=== PATIENT | female | born 1945 | race Caucasian/White ===

== ENCOUNTER 2018-03-29 08:32 | Inpatient (IN) ==
--- NOTE | 2018-03-29 09:09 | Emergency Department Note ---
Disposition Clinical Impression: Lower GI bleed Disposition: Admitted As Inpatient Condition: Fair Referrals: Veronica Sprague, CREDIT NEGOTIATOR [Primary Care Provider] - Forms: ED Satisfaction Letter, Work/School Release Time of Disposition: 10:29 GI Bleed HPI - General Chief complaint: ED Abdominal Pain Stated complaint: blood in bm Time Seen by Provider: 03/29/18 08:55 Source: patient, family Mode of arrival: private vehicle Limitations: no limitations Nursing Notes Reviewed: Yes Vital Signs Reviewed: Yes - History of Present Illness Pt Subjective Complaint: gross bloody stools Onset (ago): hour(s) Number of episodes: 2 (Last episode about 6:30 this morning) Consistency: intermittent Severity: moderate Worsens with: bowel movement Associated symptoms: Reports: abdominal pain (Patient had some abdominal cramping last night. This morning she had a sense that she had to have a bowel movement but no actual abdominal pain this morning. She denies abdominal pain at this time.) Treatments Prior to Arrival: none - Related Data Home Medications Medication Instructions Recorded Confirmed Aspirin [Adult Aspirin Regimen] 81 mg PO HS 03/29/18 03/29/18 Simvastatin [Zocor] 10 mg PO HS 03/29/18 03/29/18 Allergies Allergy/AdvReac Type Severity Reaction Status Date / Time fluconazole [From Diflucan] Allergy Hives Verified 03/29/18 08:39 Penicillins Allergy Hives Verified 03/29/18 08:39 Sulfa (Sulfonamide Allergy Hives Verified 03/29/18 08:39 Antibiotics) All systems ED: reviewed and negative except as stated. Constitutional: Denies: fever, chills Cardiovascular: Denies: chest pain, palpitations Respiratory: Denies: cough, dyspnea Gastrointestinal: Denies: nausea, vomiting Integumentary: Denies: rash Neurological: Denies: weakness Hematological/Lymphatic: Denies: easy bruising Past Medical History - Past Medical History Attestation: Yes The following information was validated with the patient. 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 Absent: scleral icterus, conjunctival injection - ENT ENT exam: normal exam, normal oropharynx, mucous membranes moist, normal external ear exam - Neck Neck exam: Present: normal inspection, full ROM, trachea midline - Chest Chest inspection: Present: normal inspection, symmetric chest wall rise. Absent: tenderness - Respiratory Respiratory exam: Present: normal lung sounds bilaterally. Absent: respiratory distress, wheezes - Cardiovascular Cardiovascular exam: Present: regular rate, normal rhythm, normal heart sounds - Abdominal Exam Abdominal exam: Present: soft, Non-Tender, normal bowel sounds. Absent: mass - Rectal Exam Waste Management Engineer present during exam: Yes (Nurse) Rectal exam: Present: bloody stool - Extremities Exam Extremities exam: Present: normal inspection. Absent: pedal edema - Back Exam Back exam: Present: normal inspection - Neurological Exam Neurological exam: Present: alert, oriented X3 - Psychiatric Psychiatric exam: Present: normal affect, normal mood - Skin Skin exam: Present: warm, dry. Absent: rash Course Course Narrative: Patient presents with 2 episodes of lower GI bleeding that started this morning. Physical examination shows melanotic stool. There is no rectal pain on rectal exam. There is no abdominal tenderness or masses. This most likely is going to represent diverticular bleeding. However it just started this morning so we do not, slow down or if she did not require transfusion. Vital signs are good and she is in no distress and she has no symptoms of significant anemia or significant blood loss. We will check the labs. Disposition will be based on diagnostic results and reevaluation. - Reevaluation(s) Reevaluation #1: Labs came back showing the hemoglobin to be fine. Oddly enough, her stool guaiac came back as negative. She clearly had melanotic stool on rectal examination and I feel that that stool guaiac is lab error. I think the patient is to be admitted to the hospital for serial hemoglobins and stool guaiac. She is hemodynamically stable and asymptomatic except for the blood in the stool. Thus I feel she can be admitted here. I spoke with the hospitalist, Dr. Kelly, about the presentation and results. He has accepted the patient for admission to the hospital. Time: 10:29 - Consultations Consultation #1: Dr. Kelly, hospitalist - I discussed the case with os was. He has accepted the patient for admission. Time: 10:25 Vital Signs Temperature 97.8 F 03/29/18 08:33 Pulse Rate 92 03/29/18 08:33 Respiratory Rate 16 03/29/18 08:33 Blood Pressure 116/79 03/29/18 08:33 O2 Sat by Pulse Oximetry 95 03/29/18 08:33 Temperature 97.8 F 03/29/18 08:33 Pulse Rate 83 03/29/18 10:28 Respiratory Rate 16 03/29/18 10:28 Blood Pressure 118/68 03/29/18 10:28 O2 Sat by Pulse Oximetry 95 03/29/18 10:28 Oxygen Delivery Oxygen Delivery Room Air GI Bleed - Medical Records Medical records reviewed: Yes I reviewed the patient's medical records. - Lab Data Lab results reviewed: Yes I reviewed the patient's lab results. Result diagrams: 03/29/18 09:27 03/29/18 09:27 Lab Results 03/29/18 03/29/18 03/29/18 Range/Units 09:06 09:27 09:27 WBC 5.4 (4.3-11.1) K/mcL RBC 4.22 (3.82-4.97) M/mcL Hgb 12.2 (11.5-15.4) g/dL Hct 36.7 (35.3-44.9) % MCV 87.0 (83.0-100.0) fL MCH 28.9 (28.0-33.3) pg MCHC 33.2 (31.6-35.5) g/dL RDW 13.4 (11.5-14.5) % Plt Count 199 (140-400) K/mcL MPV 11.0 (9.4-12.4) fL Immature Gran % 0.4 (0-4) % Seg Neutrophils % 74.4 % Lymphocytes % 15.9 % Monocytes % 7.5 % Eosinophils % 0.9 % Basophils % 0.9 % Neutrophils # 4.0 (1.6-8.9) K/mcL Lymphocytes # 0.9 (0.6-4.6) K/mcL Monocytes # 0.4 (0.0-1.3) K/mcL Eosinophils # 0.1 (0.0-0.6) K/mcL Basophils # 0.1 (0.0-0.2) K/mcL Sodium 134 L (136-145) mEq/L Potassium 5.2 H (3.5-5.1) mEq/L Chloride 102 (98-107) mEq/L Carbon Dioxide 28 (23-29) mEq/L BUN 13 (8-23) mg/dL Creatinine 0.77 (0.60-1.20) mg/dL Est GFR ( Amer) > 60 (> 60) Est GFR (Non-Af Amer) > 60 (> 60) BUN/Creatinine Ratio 17 (6-26) Glucose 126 H (70-105) mg/dL Calculated Osmolality 280 (280-300) Calcium 9.4 (8.6-10.3) mg/dL Stool Occult Blood Negative (Negative) Blood Type Antibody Screen 03/29/18 Range/Units 09:27 WBC (4.3-11.1) K/mcL RBC (3.82-4.97) M/mcL Hgb (11.5-15.4) g/dL Hct (35.3-44.9) % MCV (83.0-100.0) fL MCH (28.0-33.3) pg MCHC (31.6-35.5) g/dL RDW (11.5-14.5) % Plt Count (140-400) K/mcL MPV (9.4-12.4) fL Immature Gran % (0-4) % Seg Neutrophils % % Lymphocytes % % Monocytes % % Eosinophils % % Basophils % % Neutrophils # (1.6-8.9) K/mcL Lymphocytes # (0.6-4.6) K/mcL Monocytes # (0.0-1.3) K/mcL Eosinophils # (0.0-0.6) K/mcL Basophils # (0.0-0.2) K/mcL Sodium (136-145) mEq/L Potassium (3.5-5.1) mEq/L Chloride (98-107) mEq/L Carbon Dioxide (23-29) mEq/L BUN (8-23) mg/dL Creatinine (0.60-1.20) mg/dL Est GFR ( Amer) (> 60) Est GFR (Non-Af Amer) (> 60) BUN/Creatinine Ratio (6-26) Glucose (70-105) mg/dL Calculated Osmolality (280-300) Calcium (8.6-10.3) mg/dL Stool Occult Blood (Negative) Blood Type A POSITIVE Antibody Screen NEGATIVE
[2018-03-29 09:35] LABS: Basophils # 0.1 K/mcL (0.0-0.2); Basophils % 0.9 %; Eosinophils # 0.1 K/mcL (0.0-0.6); Eosinophils % 0.9 %; Hematocrit 36.7 % (35.3-44.9); Hemoglobin 12.2 g/dL (11.5-15.4); Immature Granulocytes % 0.4 % (0-4); Lymphocytes # 0.9 K/mcL (0.6-4.6); Lymphocytes % 15.9 %; Mean Corpuscular HGB Conc 33.2 g/dL (31.6-35.5); Mean Corpuscular Hemoglobin 28.9 pg (28.0-33.3); Monocytes # 0.4 K/mcL (0.0-1.3); Monocytes % 7.5 %; Platelet Count 199 K/mcL (140-400); Red Blood Count 4.22 M/mcL (3.82-4.97); Red Cell Distribution Width 13.4 % (11.5-14.5); Segmented Neutrophils % 74.4 %
[2018-03-29 09:45] LABS: Prothrombin Time 10.8 Seconds (9.4-12.1)
[2018-03-29 09:48] LABS: Activated Partial Thrombo Time 29.5 Seconds (26.0-36.0)
[2018-03-29 10:04] LABS: BUN/Creatinine Ratio 17 (6-26); Blood Urea Nitrogen 13 mg/dL (8-23); Calcium 9.4 mg/dL (8.6-10.3); Carbon Dioxide 28 mEq/L (23-29); Chloride 102 mEq/L (98-107); Glucose 126 mg/dL (70-105); Potassium 5.2 mEq/L (3.5-5.1); eGFR For Non-African Americans > 60 (> 60)
[2018-03-29 10:24] LABS: Osmolality,Calculated 280 (280-300); Sodium 134 mEq/L (136-145)
[2018-03-29] MEDS ORDERED: Naloxone 0.4 MG/ML INJ IVP PRN (11:07)
[2018-03-29] MEDS: 0.9 % Sodium Chloride 1,000 ML IVC SCH ×2 (12:15→21:53)
--- NOTE | 2018-03-29 14:46 | Internal Med History&Physical ---
Date of Encounter: 03/29/18 Time of Encounter: 14:15 Assessment and Plan (1) GI bleed Current visit: Yes Status: Acute I explained she may have 2 separate sources of bleeding since she had both hematochezia and melena. There is no obvious etiology apparent at this time. Aspirin will be held. Continue IV fluids and recheck labs in a.m. Qualifiers: GI bleed type/associated pathology: unspecified gastrointestinal hemorrhage type Qualified Code(s): K92.2 - Gastrointestinal hemorrhage, unspecified (2) Hyperkalemia Current visit: Yes Status: Acute Recheck labs in a.m. Internal Medicine - H&P: HPI Chief complaint: GI bleed Admitted From: Emergency Dept Plans for Post Hospital Care: Home History of present illness: Ms. Kim is a 72 year old female who came to emergency room stating approximately 0500 day of admission she had a loose BM with dark blood. She returned to bed but had another loose BM approximately one hour later that looked dark. She also noticed a scant amount of bright red blood. She came to emergency room and was evaluated and admitted to [facility] floor for ongoing care needs. She denies significant pain at present time. She denies previous melena or hematochezia. She has had no significant constipation with straining in the past few days. She reports colonoscopy 2006 was unremarkable. She has been on aspirin 81 mg daily for several years. She denies use of NSAIDs otherwise. She denies disorders of her liver or exocrine pancreas. She had cholecystectomy 2006. Past Med Surg Social Fam HX - Past Medical History Medical history: arthritis, hyperlipidemia, other Additional medical history: UTI Psychiatric history: no psych history - Past Surgical History Surgical History: cholecystectomy Additional surgical history: Tubal - Social History Smoking Status: Never smoker Smokeless Tobacco Status: No Alcohol use: none Drug use: none Internal Medicine - H&P: Meds Aspirin [Adult Aspirin Regimen] 81 mg PO HS 03/29/18 [History] Simvastatin [Zocor] 10 mg PO HS 03/29/18 [History] Allergy/AdvReac Type Severity Reaction Status Date / Time fluconazole [From Diflucan] Allergy Hives Verified 03/29/18 08:39 Penicillins Allergy Hives Verified 03/29/18 08:39 Sulfa (Sulfonamide Allergy Hives Verified 03/29/18 08:39 Antibiotics) All Systems PM: A 10-system review of systems was performed and is negative for pertinent findings except as documented above in the HPI. Review of systems: Gen.: She states her weight has been stable for several years Cardiovascular: She denies hypertension [place] heart failure angina DVT or pulmonary embolus Respiratory: She is a lifelong nonsmoker and denies chronic lung disease GI: As per history of present illness : She had kidney stones approximately 40 years ago. She denies other kidney or bladder disorders. She has had occasional UTIs. Neurologic: She denies large distortion strokes or seizures. Endocrine: She has hyperlipidemia but denies diabetes or thyroid disease Hematology/oncology: She denies blood disorders cancers or anemia Psychiatric: She has occasional feelings of depression but does not take medication. She denies other mental health diagnosis. [place] skeletal: She has DJD but denies gout or other bone joint or muscle disorders. - Constitutional Vitals: Temp Pulse Resp BP Pulse Ox 97.8 F 79 16 116/70 97 03/29/18 11:27 03/29/18 11:27 03/29/18 11:27 03/29/18 11:27 03/29/18 11:27 Exam: Gen.: She is a well-developed well-nourished female who appears in no acute distress at present time HEENT: Head is atraumatic and normal cephalic. Eyes: EOMI. There is no scleral icterus. Mouth: Mucosa is moist. Neck: Supple and nontender. There is no thyromegaly or adenopathy noted. Heart: Regular without murmurs gallops or ectopics Lungs: No wheezes or crackles are heard. Abdomen: Soft and nontender. No masses or guarding are noted. Extremities: She is wearing OLIVIA hose which I did not remove. There is no edema palpated. She has minimal DJD changes or hands. Neurologic: Mental status: She is talkative and a good historian. Cranial nerves: Smile is symmetric. Forehead wrinkles bilaterally. Tongue protrudes midline. EOMI. Motor: There is no pronator drift. Cerebellar: Finger to nose is intact bilaterally. Skin: Warm and dry Internal Med - H&P Results - Labs CBC & Chem 7: 03/29/18 09:27 03/29/18 09:27 Labs: Short CBC 03/29/18 Range/Units 09:27 WBC 5.4 (4.3-11.1) K/mcL Hgb 12.2 (11.5-15.4) g/dL Hct 36.7 (35.3-44.9) % Plt Count 199 (140-400) K/mcL Neutrophils # 4.0 (1.6-8.9) K/mcL [facility] 03/29/18 09:27 Sodium 134 L Potassium 5.2 H Chloride 102 Carbon Dioxide 28 BUN 13 Creatinine 0.77 Glucose 126 H Calcium 9.4 - VTE Documentation of Mechanical Device: Graduated compression elastic hosiery
[2018-03-30 05:26] LABS: Basophils # 0.1 K/mcL (0.0-0.2); Basophils % 1.1 %; Eosinophils # 0.1 K/mcL (0.0-0.6); Eosinophils % 1.8 %; Hematocrit 26.6 % (35.3-44.9); Hemoglobin 8.8 g/dL (11.5-15.4); Immature Granulocytes % 0.4 % (0-4); Lymphocytes # 1.5 K/mcL (0.6-4.6); Lymphocytes % 32.3 %; Mean Corpuscular HGB Conc 33.1 g/dL (31.6-35.5); Mean Corpuscular Hemoglobin 29.1 pg (28.0-33.3); Mean Corpuscular Volume 88.1 fL (83.0-100.0); Mean Platelet Volume 11.5 fL (9.4-12.4); Monocytes # 0.5 K/mcL (0.0-1.3); Monocytes % 11.5 %; Neutrophils # 2.4 K/mcL (1.6-8.9); Platelet Count 157 K/mcL (140-400); Red Blood Count 3.02 M/mcL (3.82-4.97); Red Cell Distribution Width 13.7 % (11.5-14.5); Segmented Neutrophils % 52.9 %
[2018-03-30 07:14] LABS: Sodium 133 mEq/L (136-145)
[2018-03-30 07:16] LABS: Alanine Aminotransferase 11 Units/L (7-52); Albumin 2.9 g/dL (3.5-5.7); Albumin/Globulin Ratio 1.5 (1.1-2.2); Alkaline Phosphatase 40 Units/L (34-104); Aspartate Amino Transferase 15 Units/L (13-39); BUN/Creatinine Ratio 19 (6-26); Bilirubin,Total 0.6 mg/dL (0.3-1.0); Blood Urea Nitrogen 13 mg/dL (8-23); Calcium 7.9 mg/dL (8.6-10.3); Carbon Dioxide 25 mEq/L (23-29); Chloride 106 mEq/L (98-107); Glucose 106 mg/dL (70-105); Osmolality,Calculated 277 (280-300); Potassium 3.7 mEq/L (3.5-5.1); Total Protein 4.9 g/dL (6.4-8.9); eGFR For Non-African Americans > 60 (> 60)
--- NOTE | 2018-03-30 08:43 | Internal Med Progress Note ---
Date of Encounter: 03/30/18 Time of Encounter: 08:35 - Assessment and plan (1) GI bleed Current Visit: Yes Status: Acute Assessment and plan: March 30. Remain off aspirin and discontinue IV fluids. Continue clear liquid diet and recheck labs in a.m. Qualifiers: GI bleed type/associated pathology: unspecified gastrointestinal hemorrhage type Qualified Code(s): K92.2 - Gastrointestinal hemorrhage, unspecified (2) Hyperkalemia Current Visit: Yes Status: Resolved Assessment and plan: March 30. Potassium now normal at 3.7. Recheck labs in a.m. - Subjective Interval history: March 30. She has no new complaints. She states her diarrhea has resolved. She feels very minimal abdominal discomfort overall. - Constitutional Vitals: Temp Pulse Resp BP Pulse Ox 99.1 F 75 16 95/56 96 03/30/18 07:49 03/30/18 07:49 03/30/18 07:49 03/30/18 07:49 03/30/18 07:49 Exam: She is resting comfortably in bed and appears in no acute distress. Her affect is bright and cheerful. I reviewed her medications and lab results. Internal Medicine: Result - Labs CBC & Chem 7: 03/30/18 04:45 03/30/18 04:45 Labs: Short CBC 03/29/18 03/30/18 Range/Units 09:27 04:45 WBC 5.4 4.5 (4.3-11.1) K/mcL Hgb 12.2 8.8 L D (11.5-15.4) g/dL Hct 36.7 26.6 L (35.3-44.9) % Plt Count 199 157 (140-400) K/mcL Neutrophils # 4.0 2.4 (1.6-8.9) K/mcL BMP 03/29/18 03/30/18 09:27 04:45 Sodium 134 L 133 L Potassium 5.2 H 3.7 D Chloride 102 106 Carbon Dioxide 28 25 BUN 13 13 Creatinine 0.77 0.68 Glucose 126 H 106 H Calcium 9.4 7.9 L Liver Function 03/30/18 Range/Units 04:45 Total Bilirubin 0.6 (0.3-1.0) mg/dL AST 15 (13-39) Units/L ALT 11 (7-52) Units/L Alkaline Phosphatase 40 (34-104) Units/L Albumin 2.9 L (3.5-5.7) g/dL - ABG Interpretation ABG results: PT/INR, D-dimer PT 10.8 Seconds (9.4-12.1) 03/29/18 09:27 - VTE Documentation of Mechanical Device: Graduated compression elastic hosiery Consult Discharge Plan - Plan Referrals: Veronica Sprague, HR RECEPTIONIST [Primary Care Provider] - 1 week
[2018-03-31 06:13] LABS: Basophils # 0.1 K/mcL (0.0-0.2); Basophils % 1.2 %; Eosinophils # 0.1 K/mcL (0.0-0.6); Eosinophils % 2.8 %; Hematocrit 26.3 % (35.3-44.9); Hemoglobin 8.8 g/dL (11.5-15.4); Immature Granulocytes % 0.6 % (0-4); Lymphocytes # 1.6 K/mcL (0.6-4.6); Lymphocytes % 30.6 %; Mean Corpuscular HGB Conc 33.5 g/dL (31.6-35.5); Mean Corpuscular Hemoglobin 29.3 pg (28.0-33.3); Mean Corpuscular Volume 87.7 fL (83.0-100.0); Mean Platelet Volume 11.5 fL (9.4-12.4); Monocytes # 0.5 K/mcL (0.0-1.3); Monocytes % 9.1 %; Neutrophils # 2.8 K/mcL (1.6-8.9); Platelet Count 165 K/mcL (140-400); Red Cell Distribution Width 13.8 % (11.5-14.5); Segmented Neutrophils % 55.7 %
[2018-03-31 06:33] LABS: BUN/Creatinine Ratio 21 (6-26); Blood Urea Nitrogen 15 mg/dL (8-23); Calcium 8.6 mg/dL (8.6-10.3); Carbon Dioxide 26 mEq/L (23-29); Chloride 106 mEq/L (98-107); Glucose 111 mg/dL (70-105); Osmolality,Calculated 282 (280-300); Potassium 3.9 mEq/L (3.5-5.1); Sodium 135 mEq/L (136-145); eGFR For Non-African Americans > 60 (> 60)
--- NOTE | 2018-03-31 10:33 | Internal Med Progress Note ---
Date of Encounter: 03/31/18 Time of Encounter: 10:20 - Assessment and plan (1) GI bleed Current Visit: Yes Status: Acute Assessment and plan: March 30. Remain off aspirin and discontinue IV fluids. Continue clear liquid diet and recheck labs in a.m. March 31. Hemoglobin unchanged at 8.8. Remain off aspirin and continue regular diet. Anticipate discharge home tomorrow if stable. I told her she would need EGD and colonoscopy as an outpatient. Qualifiers: GI bleed type/associated pathology: unspecified gastrointestinal hemorrhage type Qualified Code(s): K92.2 - Gastrointestinal hemorrhage, unspecified (2) Hyperkalemia Current Visit: Yes Status: Resolved Assessment and plan: March 30. Potassium now normal at 3.7. Recheck labs in a.m. - Subjective Interval history: March 30. She has no new complaints. She states her diarrhea has resolved. She feels very minimal abdominal discomfort overall. March 31. She has no new complaints. She still has minimal abdominal discomfort and reports she has still had some bright red blood per rectum when she wipes after BM. - Constitutional Vitals: Temp Pulse Resp BP Pulse Ox 98.4 F 80 16 106/66 98 03/31/18 06:00 03/31/18 06:00 03/31/18 06:00 03/31/18 06:00 03/31/18 06:00 Exam: She is resting comfortably in bed and appears in no acute distress. Her affect is bright and cheerful. I reviewed her medications and lab results. Internal Medicine: Result - Labs CBC & Chem 7: 03/31/18 05:43 03/31/18 05:43 Labs: Short CBC 03/31/18 Range/Units 05:43 WBC 5.1 (4.3-11.1) K/mcL Hgb 8.8 L (11.5-15.4) g/dL Hct 26.3 L (35.3-44.9) % Plt Count 165 (140-400) K/mcL Neutrophils # 2.8 (1.6-8.9) K/mcL BMP 03/31/18 05:43 Sodium 135 L Potassium 3.9 Chloride 106 Carbon Dioxide 26 BUN 15 Creatinine 0.73 Glucose 111 H Calcium 8.6 - ABG Interpretation ABG results: PT/INR, D-dimer PT 10.8 Seconds (9.4-12.1) 03/29/18 09:27 - VTE Documentation of Mechanical Device: Graduated compression elastic hosiery Consult Discharge Plan - Plan Referrals: Veronica Sprague, POWER OPERATOR [Primary Care Provider] - 1 week
[2018-04-01 09:16] LABS: Basophils # 0.1 K/mcL (0.0-0.2); Eosinophils # 0.2 K/mcL (0.0-0.6); Eosinophils % 3.1 %; Hematocrit 26.1 % (35.3-44.9); Hemoglobin 8.8 g/dL (11.5-15.4); Immature Granulocytes % 0.2 % (0-4); Lymphocytes # 1.2 K/mcL (0.6-4.6); Lymphocytes % 23.5 %; Mean Corpuscular HGB Conc 33.7 g/dL (31.6-35.5); Mean Corpuscular Hemoglobin 29.7 pg (28.0-33.3); Mean Corpuscular Volume 88.2 fL (83.0-100.0); Mean Platelet Volume 11.5 fL (9.4-12.4); Monocytes # 0.5 K/mcL (0.0-1.3); Monocytes % 8.7 %; Neutrophils # 3.3 K/mcL (1.6-8.9); Platelet Count 175 K/mcL (140-400); Red Blood Count 2.96 M/mcL (3.82-4.97); Red Cell Distribution Width 13.9 % (11.5-14.5); Segmented Neutrophils % 63.5 %
--- NOTE | 2018-04-01 09:39 | Discharge Summary ---
Date of Encounter: 04/01/18 Time of Encounter: 09:30 - Discharge Diagnosis (1) GI bleed Priority: Primary Status: Acute Qualifiers: GI bleed type/associated pathology: unspecified gastrointestinal hemorrhage type Qualified Code(s): K92.2 - Gastrointestinal hemorrhage, unspecified (2) Hyperkalemia Priority: Secondary Status: Resolved Hospital course: Ms. Kim is a 72 year old female who came to emergency room stating approximately 0500 day of admission she had a loose BM with dark blood. She r eturned to bed but had another loose BM approximately one hour later that looked dark. She also noticed a scant amount of bright red blood. She came to emergency room and was evaluated and admitted to [facility] for ongoing care needs. Initial orders were written by the emergency room physician. I saw her on March 29 and performed a history and physical. Aspirin was discontinued. She was given IV fluids and started on clear liquid diet. Hemoglobin decreased to 8.8 on March 30 but did not change person the next 48 hours. She had no significant melena or hematochezia. On April 01 I felt she was stable for discharge home. She will remain off aspirin at discharge. I told her she should discuss with her PCP referral for EGD and colonoscopy. She will follow with her PCP Veronica Sprague CNP later today for a regular scheduled follow-up visit. - Time Spent with Patient Total time spent providing and/or coordinating discharge services: - Discharge Medications Home Medications: Simvastatin [Zocor] 10 mg PO HS 03/29/18 [History] Allergies/Adverse Reactions: Allergy/AdvReac Type Severity Reaction Status Date / Time fluconazole [From Diflucan] Allergy Hives Verified 03/29/18 08:39 Penicillins Allergy Hives Verified 03/29/18 08:39 Sulfa (Sulfonamide Allergy Hives Verified 03/29/18 08:39 Antibiotics) Date of admission: 03/31/18 17:18 Primary care physician: Veronica Sprague CNP - Constitutional Vitals: Temp Pulse Resp BP Pulse Ox 98.8 F 75 17 100/59 99 04/01/18 07:28 04/01/18 07:28 04/01/18 07:28 04/01/18 07:28 04/01/18 07:28 - Patient Status Disposition: Home, Self-Care Condition: Fair - Discharge Instructions Follow Up With: Celestine,Ali N, SUPERINTENDENT PL[employer]OTECTION [Primary Care Provider] - 1 week - Diet and Activity Activity: resume usual activities as tolerated Diet: advance to your usual diet - VTE Documentation of Mechanical Device: Graduated compression elastic hosiery
[2018-04-01 10:17] VITALS: BP 103/65
== END 2018-04-01 11:49 | disposition home or self-care (01) | DRG 379 ==
LOC: INPPIK 08:32 → EMEROOPIK 08:32 → INPPIK 11:18
PROVIDERS: ADMIT Internal Medicine; ATTEND Internal Medicine